=== PATIENT | female | born 1950 | race Caucasian/White ===

== ENCOUNTER 2020-11-14 06:19 | Day surgery (SDC) | payer MEDICARE ==
[2020-11-14] MEDS ORDERED: Ringers Lactate 1,000 ML IV ONE (07:00)
[2020-11-14] MEDS ORDERED: EPINEPHRINE/PF 1 MG/ML AMP ONE (07:16)
[2020-11-14] MEDS ORDERED: propofoL 200 MG/20 ML VIAL IV ONE ×2 (07:50→08:35)
[2020-11-14] MEDS ORDERED: LIDOCAINE 1% MPF 5 ML VIAL ONE (07:50)
[2020-11-14] MEDS ORDERED: FENTANYL CITR 100 MCG/2 ML ONE (08:35)
--- NOTE | 2020-11-14 08:55 | ENDO RPT ---
[address], [address] COLONOSCOPY PROCEDURE REPORT EXAM DATE: 11/14/2020 PATIENT NAME: Jocelyne Solorzano MR #: [id number] BIRTHDATE: 1950 ATTENDING: Roland Murphy DR STATUS: outpatient BOWLING OR SKATING FRONT DESK CLERK: Kera Moss RN and Jessica JHA INDICATIONS: The patient is a 70 yr old Female here for a colonoscopy due to hemoccult positive stools and Positive Cologuard Stool Test PROCEDURE PERFORMED: Colonoscopy with biopsy - cold polypectomy MEDICATIONS: Per Anesthesia. ESTIMATED BLOOD LOSS: None CONSENT: The patient understands the risks and benefits of the procedure and understands that these risks include, but are not limited to: sedation, allergic reaction, infection, perforation and/or bleeding. Alternative means of evaluation and treatment include, among others: physical exam, x-rays, and/or surgical intervention. The patient elects to proceed with this endoscopic procedure. DESCRIPTION OF PROCEDURE: During intra-op preparation period all mechanical medical equipment was checked for proper function. Hand hygiene and appropriate measures for infection prevention was taken. Procedure, possible complications, alternatives including, but not limited to possibility of bleeding, perforation, tear, infection, sepsis, need for surgery, need for blood transfusion, were explained to the patient. After the risks, benefits and alternatives of the procedure were thoroughly explained, Informed consent was verified, confirmed and timeout was successfully executed by the treatment team. The patient was placed in the left lateral position. A digital rectal exam was performed and revealed internal hemorrhoids and A digital rectal exam was performed and revealed external hemorrhoids. After appropriate level of anesthesia, the scope was passed. The EC-[id number] ([id number]) endoscope was introduced through the anus and advanced to the cecum, which was identified by the appendix. The quality of the prep was fair. The instrument was then slowly withdrawn as the colon was fully examined. Scope withdrawal time was 25 minutes. COLON FINDINGS: Five large medium sized small fungating flat polyps with mucous caps were found in the sigmoid colon, rectum, ascending colon, and at the splenic flexure. A polypectomy was performed using snare cautery, with a cold snare and with cold forceps. The resection was complete, the polyp tissue was completely retrieved and sent to histology. There was moderate diverticulosis noted in the sigmoid colon with associated muscular hypertrophy and colonic spasm. No bleeding was noted from the diverticulosis. Moderate sized internal and external hemorrhoids were found. Retroflexed views revealed no abnormalities. The scope was then completely withdrawn from the patient and the procedure terminated. ADVERSE EVENTS: There were no complications. IMPRESSIONS: 1. Five large medium sized small flat polyps were found in the sigmoid colon, rectum, ascending colon, and at the splenic flexure; polypectomy was performed in a piecemeal fashion using snare cautery, with a cold snare and with cold forceps, the largest polyps were noted in Rectum @ 16cm from verge, which was pedunculated on thin stalk, taken @ stalk with hot snare, the next largest was in sigmoid colon @ 33cm from verge, flat, sessile, adenomatous appearing, this required saline lift, and was taken with hot snare. 2. There was moderate diverticulosis noted in the sigmoid colon 3. Moderate sized internal and external hemorrhoids RECOMMENDATIONS: 1. avoid NSAIDS for 2 weeks 2. await biopsy results 3. follow-up: office 2 week(s) 4. Monitor for any evidence of rectal bleeding. 5. continue surveillance 6. yearly hemoquant 7. hemorrhoidal hygiene 8. increase dietary water RECALL: Return in 1 year(s) for Colonoscopy, pending biopsy results. Pending Biopsy Results Roland Murphy DR eSigned: Roland Murphy DR 11/14/2020 8:55 AM cc: CPT CODES: ICD9 CODES: PATIENT NAME: Jocelyne Solorzano MR#: [id number]
[2020-11-14 09:07] VITALS: TEMP 97.8
[2020-11-14 09:30] VITALS: BP 153/77; O2SAT 98
--- NOTE | 2020-11-15 07:21 | EKG ---
Test Date: 2020-11-14 Test Time: 06:11:45 Chart Reader: SHANIA MEASUREMENT RESULTS: Intervals: Rate: 63 ND: 150 QRSD: 74 QT: 416 QTc: 425 [place]: P: 78 ND: 150 QRS: 85 T: 78 INTERPRETIVE STATEMENTS: Normal sinus rhythm Normal ECG No previous ECG available for comparison Electronically Signed On 11-15-20 07:18:24 CDT by Alonso Rosenberg
== END 2020-11-14 09:30 | disposition home or self-care (01) ==
LOC: OR 06:19
PROVIDERS: ATTEND Surgery
PROC: 0DBP8ZX Excision of Rectum, Via Natural or Artificial Opening Endoscopic, Diagnostic (ICD-10-PCS; 2020-11-14)
PROC: 0DBN8ZX Excision of Sigmoid Colon, Via Natural or Artificial Opening Endoscopic, Diagnostic (ICD-10-PCS; 2020-11-14)
PROC: 0DBK8ZX Excision of Ascending Colon, Via Natural or Artificial Opening Endoscopic, Diagnostic (ICD-10-PCS; principal; 2020-11-14 07:30)
DX: D12.5 Benign neoplasm of sigmoid colon (principal); K57.30 Diverticulosis of large intestine without perforation or abscess without bleeding; K64.4 Residual hemorrhoidal skin tags; K64.8 Other hemorrhoids; Z20.822 Contact with and (suspected) exposure to COVID-19
CPT/HCPCS: 93005; 88305; 45380; 45385; U0003; J2704 ×2; J0171; J3010; J7120

== ENCOUNTER 2022-11-07 10:17 | Day surgery (SDC) | payer MEDICARE, OTHER ==
[2022-11-07] MEDS ORDERED: GLYCOPYRROLATE 0.2 MG/ML SYR ONE (10:25)
[2022-11-07] MEDS ORDERED: Ringers Lactate 1,000 ML IV ONE (10:26)
[2022-11-07] MEDS ORDERED: Phenylephrine HCl 10 MG/ML 1 ML VIAL ONE (10:26)
[2022-11-07] MEDS: LIDOCAINE 4% TOP SOLUTION ONE ×2 (11:05→11:18)
[2022-11-07] MEDS ORDERED: LIDOCAINE VISCOUS 2% SOLN 15 ML UDC ONE (11:06)
[2022-11-07] MEDS ORDERED: LIDOCAINE 1% MPF 30 ML VIAL ONE (11:06)
[2022-11-07] MEDS ORDERED: propofoL 200 MG/20 ML VIAL IV ONE (11:43)
[2022-11-07] MEDS ORDERED: LIDOCAINE 1% MPF 5 ML VIAL ONE (11:43)
[2022-11-07] MEDS ORDERED: MIDAZOLAM HCL 2 MG/2 ML INJ ONE (11:43)
--- NOTE | 2022-11-07 12:28 | P.OP ---
Date of Service: 11/07/22 (Bronch with RUL BAL and BX) Findings and Operative Technique Age 72 AW RUL mass. Active smoker. Bron performed. Informed consent obtained Findings RUL necrotic material. Multiple BX performed. Procedure terminated x2 due to sig desat and bleeding. Stable. Bronchoscopy showed right upper lobe necrotic changes she had to be bagged twice due to desaturation Multiple biopsies were obtained from the right upper lobe patient was discharged in stable condition
[2022-11-07] MEDS ORDERED: ALBUTEROL 2.5 MG/3 ML NEB SOL ONE (12:48)
[2022-11-07 13:01] VITALS: O2SAT 100
[2022-11-07 13:04] VITALS: BP 139/58; TEMP 99.1
--- NOTE | 2022-11-07 13:19 | RAD REPORT ---
EXAM DESCRIPTION: RAD - Fluoroscopy <1 Hour - 11/07/2022 12:58 pm CLINICAL HISTORY: BRONCH RT LUNG COMPARISON: <Comparisons> FINDINGS: Fluoroscopy time: 2.9 minutes
--- NOTE | 2022-11-07 13:56 | RAD REPORT ---
[facility] CLINICAL HISTORY: S/P BRONCHOSCOPY R/O PNEUMO COMPARISON: CHEST PA AND LAT 2 VIEW dated 04/29/2007; Fluoroscopy <1 Hour dated 11/07/2022 TECHNIQUE: Portable AP view of the chest. FINDINGS: Wedge-shaped central opacity or masslike consolidation and the right suprahilar region. No pneumothorax or effusion. The cardiomediastinal contours are unremarkable. IMPRESSION: No pneumothorax. Right suprahilar central opacity or masslike consolidation.
== END 2022-11-07 14:10 | disposition home or self-care (01) ==
LOC: OR 10:17
PROVIDERS: ATTEND Internal Medicine Sleep Medicine
PROC: 0BDC8ZX Extraction of Right Upper Lung Lobe, Via Natural or Artificial Opening Endoscopic, Diagnostic (ICD-10-PCS; 2022-11-07)
PROC: 0B9C8ZX Drainage of Right Upper Lung Lobe, Via Natural or Artificial Opening Endoscopic, Diagnostic (ICD-10-PCS; principal; 2022-11-07 12:00)
DX: C34.91 Malignant neoplasm of unspecified part of right bronchus or lung (principal); J44.9 Chronic obstructive pulmonary disease, unspecified
CPT/HCPCS: 31624; 31625; 88108; 88305 ×2; 87015; 87206; 87116; 87102; 71045; J2704; J2001 ×2; J2370; J7613; J2250; J7120; 76000

== ENCOUNTER 2022-11-19 07:30 | Day surgery (SDC) | payer OTHER ==
[2022-11-19] MEDS ORDERED: NA CHLORIDE 0.9% 1,000 ML ONE (08:05)
[2022-11-19 08:11] VITALS: BMI 16.5
[2022-11-19 08:20] LABS: MPV 8.2 fL (7.6-11.3)
[2022-11-19 08:22] LABS: Protime INR 1.07
[2022-11-19] MEDS ORDERED: MIDAZOLAM HCL 2 MG/2 ML INJ ONE (08:49)
[2022-11-19] MEDS ORDERED: FLUMAZENIL 0.1 MG/ML (5 mL VIAL) IV ONE (08:50)
[2022-11-19] MEDS ORDERED: NALOXONE 0.4 MG/ML VIAL ONE (08:50)
[2022-11-19] MEDS ORDERED: FENTANYL CITR 100 MCG/2 ML ONE (08:50)
--- NOTE | 2022-11-19 11:03 | RAD REPORT ---
EXAM DESCRIPTION: CT - Lung Biopsy Perc w/CT - 11/19/2022 9:47 am CLINICAL HISTORY: RT LUNG MASS COMPARISON: No comparisons FINDINGS: Preoperative diagnosis: Right lung mass Post operative diagnosis: Same Conscious Sedation: 45 minutes IV conscious sedation utilizing midazolam and fentanyl.. Patient was continuously monitored by nursing staff. Contrast used: NONE Estimated blood loss: less than 5 mL Specimens: 2 x 18 gauge core specimens The patient was placed prone on the table and the right posterior back area was prepped and draped in the usual sterile fashion. 1% lidocaine was infiltrated into the subcutaneous tissues for local anes thesia. Under computed tomographic guidance, a 17 gauge introducer was advanced into the lesion. Subs equently, a 18 gauge, 10 cm long, 20 mm throw core biopsy gun was advanced into the lesion and 2 core s were obtained. Postprocedure imaging demonstrated no complications. Samples were given to pathology for analysis. Th e patient tolerated the procedure without immediate complication and transferred to the recovery room in stable condition. IMPRESSION: Technically successful CT-guided biopsy right lung mass. All CT scans are performed using dose optimization technique as appropriate and may include automated exposure control or mA/KV adjustment according to patient size.
[2022-11-19 12:56] VITALS: BP 104/57; TEMP 98.1; O2SAT 98
--- NOTE | 2022-11-19 13:47 | RAD REPORT ---
EXAM DESCRIPTION: RAD - Chest Single View - 11/19/2022 1:38 pm CLINICAL HISTORY: S/P LUNG BIOPSY Chest pain. COMPARISON: Chest Single View dated 11/07/2022 FINDINGS: Portable technique limits examination quality. Opacity in the right upper lobe appears slightly more prominent than on the prior study. There is no postprocedure pneumothorax. Emphysematous lung gomes.Heart is normal in size. IMPRESSION: No postprocedure pneumothorax.
== END 2022-11-19 13:53 | disposition home or self-care (01) ==
LOC: FNA 07:30 → DS 13:53
PROVIDERS: ATTEND Internal Medicine Sleep Medicine
PROC: 0BBK3ZX Excision of Right Lung, Percutaneous Approach, Diagnostic (ICD-10-PCS; principal; 2022-11-19)
DX: C34.91 Malignant neoplasm of unspecified part of right bronchus or lung (principal)
CPT/HCPCS: 36415; 85049; 85610; 88305; 85730; 77012; 71045; 32408; J2250; J3010; J7030; J2310

== ENCOUNTER 2023-02-09 06:58 | Emergency (ER) | payer MEDICARE ==
[2023-02-09 07:37] LABS: Absolute Lymphocytes (CBC) 0.2 K/uL (0.7-4.9); Hematocrit 29.2 % (36.0-45.0); Lymphocytes % 4.3 % (15.3-44.8); MCV 88.4 fL (80-100); MPV 8.2 fL (7.6-11.3)
[2023-02-09 07:41] LABS: Protime INR 0.93
[2023-02-09 07:54] LABS: ALT/SGPT 20 U/L (13-56); AST/SGOT 15 U/L (15-37); Albumin 2.7 g/dL (3.4-5.0); Alkaline Phosphatase 84 U/L (45-117); BUN Blood Urea Nitrogen 29 mg/dL (7-18); Bicarbonate 24 mEq/L (21-32); Bilirubin Total 0.2 mg/dL (0.2-1.0); Glomerular Filtration Rate 40 ml/min (=/>90); Glucose Level 196 mg/dL (74-106); Magnesium 2.3 mg/dL (1.6-2.4); NT PRO-BNP 824 pg/mL (<125); Potassium 4.6 mEq/L (3.5-5.1); Protein, Total 7.3 g/dL (6.4-8.2); Sodium Level 136 mEq/L (136-145)
[2023-02-09 07:55] LABS: Bilirubin Direct < 0.1 mg/dL (0-0.2); Bilirubin Indirect, Calculated ND mg/dL (0.2-0.8)
--- NOTE | 2023-02-09 08:09 | RAD REPORT ---
[facility] 7[facility]38 am CLINICAL HISTORY: The COMPARISON: December 2022 FINDINGS: Right upper lobe mass has decreased in size. Left lung appears clear of acute infiltrate. The heart is normal size
--- NOTE | 2023-02-09 08:26 | RAD REPORT ---
EXAM DESCRIPTION: CT - Chest For Pe Angio - 02/09/2023 8:11 am CLINICAL HISTORY: Chest pain COMPARISON: December 2022 TECHNIQUE: Dynamically enhanced axial 3 mm thick images of the chest were obtained during administra tion of 100 mL Isovue 370 IV contrast. Coronal and oblique reconstruction images were generated and r eviewed. Exam utilizes a protocol for optimal evaluation of pulmonary arterial tree. Maximum intensity projections 3D imaging was utilized All CT scans are performed using dose optimization technique as appropriate and may include automated exposure control or mA/KV adjustment according to patient size. FINDINGS: A pulmonary embolus is not seen. A thoracic aortic aneurysm is not noted. A pleural effusion is not seen. A pericardial effusion is not seen. The soft tissue component to the known right upper lobe mass has diminished status post treatment. It contains a prominent central cavity. 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 Thoracoabdominal aortic aneurysm 3.[address] in [address] ability
--- OUTSIDE RECORDS SUMMARY | 2023-02-09 09:10 | XMS REPORT | Continuity of Care Document ---
:1950 Author Organization [facility] t Address [address] [place] [address] [address] [place] [address] Care Team Providers Name Role Phone NormaSandra Attending Clinician Unavailable Payers Payer Name Policy Type Policy Number Effective Date Expiration Date Krista stevenson [facility] 53 [id number] 2021 Common ADVANTAGE 00:00:00 [facility] NOVITAS MB [id number] [facility] MEDICARE NOVITAS MB [id number] [facility] MEDICARE NOVITAS MB [id number] Common [facility] MEDICARE NOVITAS MB [id number] [facility] [place] [id number] [facility] - [facility] Problems Condition Condition Condition Status Onset Resolution Last Treating Co mments Source Name Details Category Date Date Treatment Clinician Date Osteoporos Osteoporos Problem C ommon is is of Spirit lumbar - [facility] spine [facility] Hypothyroi Hypothyroi Problem C ommon dism dism [facility] [id number] Screening Problem Com mon for breast [facility] cancer [facility] Hypertensi Hypertensi Problem C ommon on on [facility] Hyperlipid Hyperlipid Problem C ommon emia emia [facility] Gastroesop Chronic Problem Comm on hageal GERD Spirit reflux - CHI disease [facility] [id number] Cigarette Problem Comm on nicotine Spirit dependence - [facility] without complicati [facility] [id number] Moderate Problem Comm on protein-ca Spirit [place] - [facility] malnutriti [facility] [id number] Peripheral Problem Co mmon vascular Spirit disease, - [facility] unspecifie [facility] [id number] History of Problem Co mmon uterine Spirit cancer - [facility] [id number] Stage 3a Problem Comm on chronic Spirit kidney - [facility] disease [facility] [id number] Mild Problem Common protein-ca Spirit [place] - [facility] malnutriti [facility] Allergies, Adverse Reactions, Alerts Allergy Allergy Status Severity Reaction(s) Onset Inactive Treating Comm ents Source Name Type Date Date Clinician Penicill Penicill Active swelling to C ommon in in tongue [facility] lisinopr lisinopr Active cough Common il il [facility] valsarta valsarta Active cough Common n n [facility] irbesart irbesart Active cough Common an an [facility] 235 Drug Active itching Common allergy [facility] Social History Social Habit Start Date Stop Date Quantity Comments Source History of Tobacco Current Smoker Co mmon [facility] - [facility] Use [facility] Sex Assigned At Com mon [facility] Smoking Status Start Date Stop Date Source Current Smoker 2022-07-29 00:00:00 Common Spiri t [facility] Medications Ordered Filled Start Stop Current Ordering Indication Dosage Frequency Signature Comments Components Source Medication Medication Date Date Medication? Clinician (SIG) Name Name Aspirin Aspirin No 1{table QD Aspirin Adult Low Adult Low 3-27 t} Adult Low Strength 81 Strength 81 00:00: Strength MG MG 00 81 MG Aspirin Aspirin No 1{table QD Aspirin Adult Low Adult Low 3-27 t} Adult Low Strength 81 Strength 81 00:00: Strength MG MG 00 81 MG Aspirin Aspirin No 1{table QD Aspirin Adult Low Adult Low 3-27 t} Adult Low Strength 81 Strength 81 00:00: Strength MG MG 00 81 MG Aspirin Aspirin No 1{table QD Aspirin Adult Low Adult Low 3-27 t} Adult Low Strength 81 Strength 81 00:00: Strength MG MG 00 81 MG Aspirin Aspirin No 1{table QD Aspirin Adult Low Adult Low 3-27 t} Adult Low Strength 81 Strength 81 00:00: Strength MG MG 00 81 MG Aspirin Aspirin No 1{table QD Aspirin Adult Low Adult Low 3-27 t} Adult Low Strength 81 Strength 81 00:00: Strength MG MG 00 81 MG Aspirin Aspirin No 1{table QD Aspirin Adult Low Adult Low 3-27 t} Adult Low Strength 81 Strength 81 00:00: Strength MG MG 00 81 MG Aspirin Aspirin No 1{table QD Aspirin Adult Low Adult Low 3-27 t} Adult Low Strength 81 Strength 81 00:00: Strength MG MG 00 81 MG Aspirin Aspirin Yes Sandra 1 tablet Co mmon Adult Low Adult Low 3-27 [place] Spir it Strength Strength 00:00: - [facility]I 00 [facility] Aspirin Aspirin No 1{table QD Aspirin Adult Low Adult Low 3-27 t} Adult Low Strength 81 Strength 81 00:00: Strength MG MG 00 81 MG Aspirin Aspirin No 1{table QD Aspirin Adult Low Adult Low 3-27 t} Adult Low Strength 81 Strength 81 00:00: Strength MG MG 00 81 MG Pravastatin Pravastatin Yes Sandra TAKE ONE Common Sodium Sodium [place] TABLET BY Spiri t MOUTH ONCE - CHI DAILY AT [facility] Diltiazem Diltiazem Yes Sandra TAKE TWO Common HCl HCl [place] TABLETS BY Spirit MOUTH ONCE - CHI DAILY 90 [facility] Levothyroxi Levothyroxi Yes Sandra take one Common ne Sodium ne Sodium [place] tablet by Spirit mouth once - [facility]I daily Once St a day [address] Omeprazole Omeprazole Yes Sandra TAKE 1 Common [place] CAPSULE BY Spirit MOUTH ONCE - CHI DAILY [facility] Losartan Losartan Yes Sandra 1 tablet Co mmon Potassium Potassium [place] Spir it - CHI [facility] Coricidin Coricidin No 1{capsu 6xD Coricidin HBP HBP le_as_n HBP Congestion/ Congestion/ eeded} Congestion Cough Cough /Cough 10-200 MG 10-200 MG 10-200 MG dilTIAZem dilTIAZem No dilTIAZem HCl 120 MG HCl 120 MG HCl 120 MG Omeprazole Omeprazole No Omeprazole 20 MG 20 MG 20 MG Benadryl Benadryl No 1{table QD Benadryl Allergy 25 Allergy 25 t_at_be Allergy 25 MG MG dtime_a MG s_neede d} Pravastatin Pravastatin No Pravastati Sodium 40MG Sodium 40MG n Sodium 40MG Sodium Sodium No Sodium Bicarbonate Bicarbonate Bicarbonat 325 MG 325 MG e 325 MG Omeprazole Omeprazole No Omeprazole 20 MG 20 MG 20 MG Pravastatin Pravastatin No Pravastati Sodium 40 Sodium 40 n Sodium MG MG 40 MG Euthyrox 75 Euthyrox 75 No QD Euthyrox MCG MCG 75 MCG Benadryl Benadryl No 1{table QD Benadryl Allergy 25 Allergy 25 t_at_be Allergy 25 MG MG dtime_a MG s_neede d} dilTIAZem dilTIAZem No dilTIAZem HCl 120 MG HCl 120 MG HCl 120 MG Coricidin Coricidin No 1{capsu 6xD Coricidin HBP HBP le_as_n HBP Congestion/ Congestion/ eeded} Congestion Cough Cough /Cough 10-200 MG 10-200 MG 10-200 MG Sodium Sodium No Sodium Bicarbonate Bicarbonate Bicarbonat 325 MG 325 MG e 325 MG Sodium Sodium No Sodium Bicarbonate Bicarbonate Bicarbonat 325 MG 325 MG e 325 MG Coricidin Coricidin No 1{capsu 6xD Coricidin HBP HBP le_as_n HBP Congestion/ Congestion/ eeded} Congestion Cough Cough /Cough 10-200 MG 10-200 MG 10-200 MG Pravastatin Pravastatin No Pravastati Sodium 40 Sodium 40 n Sodium MG MG 40 MG Omeprazole Omeprazole No Omeprazole 20 MG 20 MG 20 MG dilTIAZem dilTIAZem No dilTIAZem HCl 120 MG HCl 120 MG HCl 120 MG Benadryl Benadryl No 1{table QD Benadryl Allergy 25 Allergy 25 t_at_be Allergy 25 MG MG dtime_a MG s_neede d} Euthyrox 75 Euthyrox 75 No Euthyrox MCG MCG 75 MCG Euthyrox 75 Euthyrox 75 No QD Euthyrox MCG MCG 75 MCG Omeprazole Omeprazole No Omeprazole 20 MG 20 MG 20 MG Sodium Sodium No Sodium Bicarbonate Bicarbonate Bicarbonat 325 MG 325 MG e 325 MG dilTIAZem dilTIAZem No dilTIAZem HCl 120 MG HCl 120 MG HCl 120 MG Euthyrox 75 Euthyrox 75 No Euthyrox MCG MCG 75 MCG Benadryl Benadryl No 1{table QD Benadryl Allergy 25 Allergy 25 t_at_be Allergy 25 MG MG dtime_a MG s_neede d} Coricidin Coricidin No 1{capsu 6xD Coricidin HBP HBP le_as_n HBP Congestion/ Congestion/ eeded} Congestion Cough Cough /Cough 10-200 MG 10-200 MG 10-200 MG Pravastatin Pravastatin No Pravastati Sodium 40 Sodium 40 n Sodium MG MG 40 MG Euthyrox 75 Euthyrox 75 No QD Euthyrox MCG MCG 75 MCG Omeprazole Omeprazole No Omeprazole 20 MG 20 MG 20 MG Sodium Sodium No Sodium Bicarbonate Bicarbonate Bicarbonat 325 MG 325 MG e 325 MG dilTIAZem dilTIAZem No dilTIAZem HCl 120 MG HCl 120 MG HCl 120 MG Euthyrox 75 Euthyrox 75 No Euthyrox MCG MCG 75 MCG Benadryl Benadryl No 1{table QD Benadryl Allergy 25 Allergy 25 t_at_be Allergy 25 MG MG dtime_a MG s_neede d} Coricidin Coricidin No 1{capsu 6xD Coricidin HBP HBP le_as_n HBP Congestion/ Congestion/ eeded} Congestion Cough Cough /Cough 10-200 MG 10-200 MG 10-200 MG Pravastatin Pravastatin No Pravastati Sodium 40 Sodium 40 n Sodium MG MG 40 MG Euthyrox 75 Euthyrox 75 No QD Euthyrox MCG MCG 75 MCG Pravastatin Pravastatin No Pravastati Sodium 40 Sodium 40 n Sodium MG MG 40 MG dilTIAZem dilTIAZem No dilTIAZem HCl 120 MG HCl 120 MG HCl 120 MG Levothyroxi Levothyroxi No Levothyrox ne Sodium ne Sodium ine Sodium 75 MCG 75 MCG 75 MCG Omeprazole Omeprazole No Omeprazole 20 MG 20 MG 20 MG Benadryl Benadryl No 1{table QD Benadryl Allergy 25 Allergy 25 t_at_be Allergy 25 MG MG dtime_a MG s_neede d} Coricidin Coricidin No 1{capsu 6xD Coricidin HBP HBP le_as_n HBP Congestion/ Congestion/ eeded} Congestion Cough Cough /Cough 10-200 MG 10-200 MG 10-200 MG Sodium Sodium No Sodium Bicarbonate Bicarbonate Bicarbonat 325 MG 325 MG e 325 MG Pravastatin Pravastatin No Pravastati Sodium 40MG Sodium 40MG n Sodium 40MG Sodium Sodium No Sodium Bicarbonate Bicarbonate Bicarbonat 325 MG 325 MG e 325 MG Diltiazem Diltiazem No Diltiazem HCl 120 MG HCl 120 MG HCl 120 MG Levothyroxi Levothyroxi No QD Levothyrox ne Sodium ne Sodium ine Sodium 75 MCG 75 MCG 75 MCG Omeprazole Omeprazole No Omeprazole 20 MG 20 MG 20 MG Pravastatin Pravastatin No Pravastati Sodium 40MG Sodium 40MG n Sodium 40MG Sodium Sodium No Sodium Bicarbonate Bicarbonate Bicarbonat 325 MG 325 MG e 325 MG Omeprazole Omeprazole No Omeprazole 20 MG 20 MG 20 MG Diltiazem Diltiazem No Diltiazem HCl 120 MG HCl 120 MG HCl 120 MG Sodium Sodium No Sodium Bicarbonate Bicarbonate Bicarbonat 325 MG 325 MG e 325 MG Omeprazole Omeprazole No Omeprazole 20 MG 20 MG 20 MG Pravastatin Pravastatin No Pravastati Sodium 40MG Sodium 40MG n Sodium 40MG dilTIAZem dilTIAZem No dilTIAZem HCl 120 MG HCl 120 MG HCl 120 MG Sodium Sodium No Sodium Bicarbonate Bicarbonate Bicarbonat 325 MG 325 MG e 325 MG dilTIAZem dilTIAZem No dilTIAZem HCl 120 MG HCl 120 MG HCl 120 MG Omeprazole Omeprazole No Omeprazole 20 MG 20 MG 20 MG Pravastatin Pravastatin No Pravastati Sodium 40MG Sodium 40MG n Sodium 40MG Immunizations Ordered Immunization Filled Immunization Date Status Commen ts Source Name Name FLUZONE HIGH DOSE FLUZONE HIGH DOSE 2021-05-29 Completed [facility] OVER 65 OVER 65 14:23:00 - [facility] FLUZONE HIGH DOSE FLUZONE HIGH DOSE 2021-05-29 Completed [facility] OVER 65 OVER 65 14:23:00 - [facility] FLUZONE HIGH DOSE FLUZONE HIGH DOSE 2021-05-29 Completed [facility] OVER 65 OVER 65 14:23:00 - [facility] FLUZONE HIGH DOSE FLUZONE HIGH DOSE 2021-05-29 Completed [facility] OVER 65 OVER 65 14:23:00 - [facility] FLUZONE HIGH DOSE FLUZONE HIGH DOSE 2021-05-29 Completed [facility] OVER 65 OVER 65 14:23:00 - [facility] FLUZONE HIGH DOSE FLUZONE HIGH DOSE 2021-05-29 Completed [facility] OVER 65 OVER 65 14:23:00 - [facility] FLUZONE HIGH DOSE FLUZONE HIGH DOSE 2020-04-10 Completed [facility] OVER 65 OVER 65 19:57:00 - [facility] FLUZONE HIGH DOSE FLUZONE HIGH DOSE 2020-04-10 Completed [facility] OVER 65 OVER 65 19:57:00 - [facility] FLUZONE HIGH DOSE FLUZONE HIGH DOSE 2020-04-10 Completed [facility] OVER 65 OVER 65 19:57:00 - [facility] FLUZONE HIGH DOSE FLUZONE HIGH DOSE 2020-04-10 Completed [facility] OVER 65 OVER 65 19:57:00 - [facility] FLUZONE HIGH DOSE FLUZONE HIGH DOSE 2020-04-10 Completed [facility] OVER 65 OVER 65 19:57:00 - [facility] FLUZONE HIGH DOSE FLUZONE HIGH DOSE 2020-04-10 Completed [facility] OVER 65 OVER 65 19:57:00 - [facility] FLUZONE HIGH DOSE FLUZONE HIGH DOSE 2020-04-10 Completed [facility] OVER 65 OVER 65 19:57:00 - [facility] FLUZONE HIGH DOSE FLUZONE HIGH DOSE 2020-04-10 Completed [facility] OVER 65 OVER 65 19:57:00 - [facility] FLUZONE HIGH DOSE FLUZONE HIGH DOSE 2020-04-10 Completed [facility] OVER 65 OVER 65 19:57:00 - [facility] FLUZONE HIGH DOSE FLUZONE HIGH DOSE 2020-04-10 Completed [facility] OVER 65 OVER 65 19:57:00 - [facility] FLUZONE HIGH DOSE FLUZONE HIGH DOSE 2019-05-06 Completed [facility] OVER 65 OVER 65 15:11:00 - [facility] FLUZONE HIGH DOSE FLUZONE HIGH DOSE 2019-05-06 Completed [facility] OVER 65 OVER 65 15:11:00 - [facility] FLUZONE HIGH DOSE FLUZONE HIGH DOSE 2019-05-06 Completed [facility] OVER 65 OVER 65 15:11:00 - [facility] FLUZONE HIGH DOSE FLUZONE HIGH DOSE 2019-05-06 Completed [facility] OVER 65 OVER 65 15:11:00 - [facility] FLUZONE HIGH DOSE FLUZONE HIGH DOSE 2019-05-06 Completed [facility] OVER 65 OVER 65 15:11:00 - [facility] FLUZONE HIGH DOSE FLUZONE HIGH DOSE 2019-05-06 Completed [facility] OVER 65 OVER 65 15:11:00 - [facility] FLUZONE HIGH DOSE FLUZONE HIGH DOSE 2019-05-06 Completed [facility] OVER 65 OVER 65 15:11:00 - [facility] FLUZONE HIGH DOSE FLUZONE HIGH DOSE 2019-05-06 Completed [facility] OVER 65 OVER 65 15:11:00 - [facility] FLUZONE HIGH DOSE FLUZONE HIGH DOSE 2019-05-06 Completed [facility] OVER 65 OVER 65 15:11:00 - [facility] FLUZONE HIGH DOSE FLUZONE HIGH DOSE 2019-05-06 Completed [facility] OVER 65 OVER 65 15:11:00 - [facility] Pneumovax (PPSV23) Pneumovax (PPSV23) 2018-04-26 Completed [facility] 21:19:00 [facility] Pneumovax (PPSV23) Pneumovax (PPSV23) 2018-04-26 Completed [facility] 21:19:00 [facility] Pneumovax (PPSV23) Pneumovax (PPSV23) 2018-04-26 Completed [facility] 21:19:00 [facility] Pneumovax (PPSV23) Pneumovax (PPSV23) 2018-04-26 Completed [facility] 21:19:00 [facility] Pneumovax (PPSV23) Pneumovax (PPSV23) 2018-04-26 Completed [facility] 21:19:00 [facility] Pneumovax (PPSV23) Pneumovax (PPSV23) 2018-04-26 Completed [facility] 21:19:00 [facility] Pneumovax (PPSV23) Pneumovax (PPSV23) 2018-04-26 Completed [facility] 21:19:00 [facility] Pneumovax (PPSV23) Pneumovax (PPSV23) 2018-04-26 Completed [facility] 21:19:00 - [facility] Pneumovax (PPSV23) Pneumovax (PPSV23) 2018-04-26 Completed Common [facility] 21:19:00 [facility] Pneumovax (PPSV23) Pneumovax (PPSV23) 2018-04-26 Completed [facility] 21:19:00 [facility] Vital Signs Vital Name Observation Time Observation Value Comments Source height 2022-07-30 08:40:00 66.5 [in_i] [facility] weight 2022-07-30 08:40:00 102.6 [lb_av] [facility] temperature 2022-07-30 08:40:00 97.9 [degF] [facility] bmi 2022-07-30 08:40:00 16.31 kg/m2 [facility] oximetry 2022-07-30 08:40:00 96 % [facility] respiratory rate 2022-07-30 08:40:00 15 /min Comm on [facility] blood pressure 2022-07-30 08:40:00 147 mm[Hg] [facility] systolic [facility] blood pressure 2022-07-30 08:40:00 88 mm[Hg] [facility] diastolic [facility] height 2022-07-30 08:00:00 66.5 [in_i] [facility] weight 2022-07-30 08:00:00 102.6 [lb_av] [facility] temperature 2022-07-30 08:00:00 97.9 [degF] [facility] bmi 2022-07-30 08:00:00 16.31 kg/m2 [facility] oximetry 2022-07-30 08:00:00 96 % [facility] respiratory rate 2022-07-30 08:00:00 15 /min Comm on [facility] blood pressure 2022-07-30 08:00:00 147 mm[Hg] [facility] - systolic [facility] blood pressure 2022-07-30 08:00:00 88 mm[Hg] Common [facility] - diastolic [facility] height 2021-12-18 08:00:00 66.5 [in_i] Common [facility] weight 2021-12-18 08:00:00 104 [lb_av] [facility] temperature 2021-12-18 08:00:00 97.5 [degF] Common [facility] bmi 2021-12-18 08:00:00 16.53 kg/m2 [facility] oximetry 2021-12-18 08:00:00 96 % [facility] respiratory rate 2021-12-18 08:00:00 16 /min Comm on [facility] blood pressure 2021-12-18 08:00:00 120 mm[Hg] Common [facility] - systolic [facility] blood pressure 2021-12-18 08:00:00 64 mm[Hg] Common [facility] - diastolic [facility] height 2021-06-26 08:40:00 66.5 [in_i] Common [facility] weight 2021-06-26 08:40:00 105.4 [lb_av] Common [facility] temperature 2021-06-26 08:40:00 97.6 [degF] Common [facility] bmi 2021-06-26 08:40:00 16.76 kg/m2 Common [facility] oximetry 2021-06-26 08:40:00 97 % Common [facility] respiratory rate 2021-06-26 08:40:00 16 /min Comm on [facility] blood pressure 2021-06-26 08:40:00 114 mm[Hg] Common [facility] - systolic [facility] blood pressure 2021-06-26 08:40:00 60 mm[Hg] [facility] - diastolic [facility] height 2021-03-27 08:00:00 66.5 [in_i] Common [facility] weight 2021-03-27 08:00:00 107 [lb_av] Common [facility] temperature 2021-03-27 08:00:00 97.6 [degF] Common [facility] bmi 2021-03-27 08:00:00 17.01 kg/m2 Common [facility] oximetry 2021-03-27 08:00:00 98 % Common [facility] blood pressure 2021-03-27 08:00:00 138 mm[Hg] Common [facility] - systolic [facility] blood pressure 2021-03-27 08:00:00 81 mm[Hg] Common [facility] - diastolic [facility] height 2020-12-24 08:00:00 66.5 [in_i] Common [facility] weight 2020-12-24 08:00:00 109.6 [lb_av] Common [facility] temperature 2020-12-24 08:00:00 97.6 [degF] [facility] bmi 2020-12-24 08:00:00 17.42 kg/m2 [facility] oximetry 2020-12-24 08:00:00 96 % [facility] respiratory rate 2020-12-24 08:00:00 18 /min Comm on [facility] blood pressure 2020-12-24 08:00:00 136 mm[Hg] Common [facility] - systolic [facility] blood pressure 2020-12-24 08:00:00 84 mm[Hg] Common [facility] diastolic [facility] Procedures This patient has no known procedures. Encounters Start End Encounter Admission Attending Care Care Encounter Source Date/Time Date/Time Type Type Clinicians Facility Department ID 2022-07-31 Outpatient THELMA Green [facility] [id number] Common 10:03:00 Sandra [id number] [facility] 2022-07-28 Outpatient [place], STLMLC STLMLC [id number] Common 09:23:00 Sandra [facility] 2021-12-19 Outpatient [place], STLMLC STLMLC [id number] Common 06:58:00 Sandra [facility] 2021-09-18 Outpatient [place], STLMLC STLMLC [id number] Common 14:10:30 Sandra [id number] [facility] 2021-09-18 Outpatient [place], STLMLC STLMLC [id number] Common 14:07:05 Sandra [id number] [facility] 2021-09-18 Outpatient [place], STLMLC STLMLC [id number] Common 12:59:10 Sandra [id number] [facility] 2021-09-18 Outpatient [place], STLMLC STLMLC [id number] Common 11:19:48 Sandra [id number] [facility] 2022-09-29 2022-09-29 (TEL) STLMLC STLMLC [id number] Co mmon 00:00:00 00:00:00 [facility] 2022-07-30 2022-07-30 OFFICE STLMLC STLMLC [id number] Co mmon 00:00:00 00:00:00 VISIT [facility] PT - [facility] 4 [facility] 2022-07-30 2022-07-30 SUB ANNUAL STLMLC STLMLC [id number] Common 00:00:00 00:00:00 MCR [facility] WELLNESS - CHI VISIT [facility] 2022-05-30 2022-05-30 (TEL) STLMLC STLMLC [id number] Co mmon 00:00:00 00:00:00 [facility] 2021-12-18 2021-12-18 OFFICE STLMLC STLMLC [id number] Co mmon 00:00:00 00:00:00 VISIT [facility] PT - CHI LEVEL 4 [facility] 2021-06-26 2021-06-26 OFFICE STLMLC STLMLC [id number] Co mmon 00:00:00 00:00:00 VISIT [facility] ESTAB PT - CHI LEVEL 4 [facility] 2021-03-27 2021-03-27 SUB ANNUAL STLMLC STLMLC [id number] Common 00:00:00 00:00:00 MCR [facility] WELLNESS - CHI VISIT [facility] 2021-02-05 2021-02-05 (TEL) STLMLC STLMLC [id number] Co mmon 00:00:00 00:00:00 [facility] 2021-01-02 2021-01-02 (TEL) STLMLC STLMLC [id number] Co mmon 00:00:00 00:00:00 [facility] 2020-12-24 2020-12-24 OFFICE STLMLC STLMLC [id number] Co mmon 00:00:00 00:00:00 VISIT [facility] PT - CHI LEVEL 4 [facility] 2020-10-24 2020-10-24 Outpatient STLMLC STLMLC [id number] Common 00:00:00 00:00:00 [facility] 2020-06-25 2020-06-25 Outpatient STLMLC STLMLC [id number] Common 00:00:00 00:00:00 [facility] 2020-06-25 2020-06-25 Outpatient STLMLC STLMLC [id number] Common 00:00:00 00:00:00 [facility] 2020-06-13 2020-06-13 Outpatient STLMLC STLMLC [id number] Common 00:00:00 00:00:00 [facility] 2020-05-16 2020-05-16 Outpatient STLMLC STLMLC [id number] Common 00:00:00 00:00:00 [facility] 2019-12-23 2019-12-23 [facility] [id number] Common 08:00:00 08:00:00 [facility] 2019-07-28 2019-07-28 [facility] [id number] Common 14:22:00 14:22:00 [facility] 2019-06-24 2019-06-24 [facility] [id number] Common 08:00:00 08:00:[address] [facility] 2019-05-24 2019-05-24 [facility] [id number] Common 08:56:00 08:56:[address] [facility] 2019-05-24 2019-05-24 [facility] [id number] Common 08:00:00 08:00:[address] [facility] 2018-11-22 2018-11-22 [facility] [id number] Common 09:00:00 09:00:[address] [facility] 2018-06-07 2018-06-07 [facility] [id number] Common 08:49:00 08:49:[address] [facility] 2018-05-24 2018-05-24 [facility] [id number] Common 11:00:00 11:00:[address] [facility] 2018-04-13 2018-04-13 [facility] [id number] Common 17:22:00 17:22:[address] [facility] 2017-11-17 2017-11-17 [facility] [id number] Common 08:30:00 08:30:[address] Spir it [facility] Results This patient has no known results.
[2023-02-09] MEDS ORDERED: HYDROMORPHONE HCL 1 MG/ML INJ ONE (09:47)
[2023-02-09] MEDS ORDERED: ONDANSETRON 4 MG/2 ML VIAL ONE (09:48)
--- NOTE | 2023-02-09 10:35 | EDPHYS ---
Physician Documentation [facility] Name: Jocelyne Solorzano Age: 72 yrs Sex: Female : 1950 Arrival Date: 02/09/2023 Time: 06:58 Bed 16 Private MD: ED Physician Jeanette Cash HPI: 02/09 07:29 This 72 yrs old Female presents to ER via EMS with complaints of Chest pain. sp3 07:29 72-year-old female with a history of lung cancer (patient does not know exact type) sp3 currently on chemotherapy and radiation which started 4 weeks ago as well as COPD (patient still currently smokes) presents to the ED with chief complaint of chest pain acute on chronic chest pain steadily increasing since her radiation started and over the last 48 hours has gotten worse. She also states she has mild shortness of breath which has always been there over the last few months. No sudden increase in that symptom. She denies fever, headache, neck pain, URI symptoms, back pain, abdominal pain, nausea, vomiting, diarrhea, skin rash, focal neurological deficit, syncope, near syncope, or any other signs or symptoms on ROS at this time. She denies any prior history of blood clot, DVT or PE. She denies any prolonged immobilization, long travel, potential bad food, known sick contacts or any other history as well.. Historical: - Allergies: 07:02 No Known Allergies; vc1 - PMHx: 07:02 COPD; Lung cancer; Hyperthyroidism; vc1 - PSHx: 07:02 Total abdominal hysterectomy; vc1 - Immunization history:: Client reports having NOT received the Covid vaccine. - Social history:: Smoking status: Patient reports the use of cigarette tobacco products, smokes one-half pack cigarettes per day. ROS: 07:31 Constitutional: Negative for fever, chills, and weight loss, Eyes: Negative for injury, sp3 pain, redness, and discharge, ENT: Negative for injury, pain, and discharge, Neck: Negative for injury, pain, and swelling, Abdomen/GI: Negative for abdominal pain, nausea, vomiting, diarrhea, and constipation, Back: Negative for injury and pain, MS/Extremity: Negative for injury and deformity, Skin: Negative for injury, rash, and discoloration, Neuro: Negative for headache, weakness, numbness, tingling, and seizure, Psych: Negative for depression, anxiety, suicide ideation, homicidal ideation, and hallucinations, Allergy/Immunology: Negative for hives, rash, and allergies, Endocrine: Negative for neck swelling, polydipsia, polyuria, polyphagia, and marked weight changes, Hematologic/Lymphatic: Negative for swollen nodes, abnormal bleeding, and unusual bruising. 07:31 All other systems are negative. Exam: 07:31 Constitutional: This is a well developed, well nourished patient who is awake, alert, sp3 and in no acute distress. Head/Face: Normocephalic, atraumatic. Eyes: Pupils equal round and reactive to light, extra-ocular motions intact. Lids and lashes normal. Conjunctiva and sclera are non-icteric and not injected. Cornea within normal limits. Periorbital areas with no swelling, redness, or edema. ENT: Nares patent. No nasal discharge, no septal abnormalities noted. External auditory canals are clear. Oropharynx with no redness, swelling, or masses, exudates, or evidence of obstruction, uvula midline. Mucous membranes moist. Neck: Trachea midline, no thyromegaly or masses palpated, and no cervical lymphadenopathy. Supple, full range of motion without nuchal rigidity, or vertebral point tenderness. No Meningismus. Chest/axilla: Normal chest wall appearance and motion. Nontender with no deformity. No lesions are appreciated. Respiratory: Lungs have equal breath sounds bilaterally, clear to auscultation and percussion. No rales, rhonchi or wheezes noted. No increased work of breathing, no retractions or nasal flaring. Abdomen/GI: Soft, non-tender, with normal bowel sounds. No distension or tympany. No guarding or rebound. No evidence of tenderness throughout. Back: No spinal tenderness. No costovertebral tenderness. Full range of motion. Skin: Warm, dry with normal turgor. Normal color with no rashes, no lesions, and no evidence of cellulitis. MS/ Extremity: Pulses equal, no cyanosis. Neurovascular intact. Full, normal range of motion. Neuro: Awake and alert, GCS 15, oriented to person, place, time, and situation. Cranial nerves II-XII grossly intact. Motor strength 5/5 in all extremities. Sensory grossly intact. Cerebellar exam normal. Normal gait. Psych: Awake, alert, with orientation to person, place and time. Behavior, mood, and affect are within normal limits. 07:31 Cardiovascular: Normal cardiac exam with mild tachycardia in the 125 range. Pulse ox 9 9% on room air respiratory rate at 16 with no distress. Lungs demonstrate coarse breath sounds with occasional rhonchi on the left.. 07:58 ECG was reviewed by the Attending Physician. EKG demonstrates normal sinus rhythm at 85 sp3 bpm with normal intervals, normal QRS, normal axis, normal axis ST segments without evidence of any acute ischemia. Vital Signs: 07:01 BP 145 / 93; Pulse 96; Resp 20; Temp 98.1; Pulse Ox 98% ; Weight 46.27 kg; Height 5 ft. vc1 6 in. ; Pain 10/10; 08:00 BP 140 / 79; Pulse 88; Resp 22; Pulse Ox 97% ; bp 09:38 BP 151 / 92; Pulse 80; Resp 21; Pulse Ox 98% ; bp 11:20 BP 150 / 89; Pulse 83; Resp 18; Pulse Ox 97% ; bp 07:01 Body Mass Index 16.46 (46.27 kg, 167.64 cm) vc1 07:01 Pain Scale: Adult vc1 MDM: 07:05 Patient medically screened. sp3 07:32 Data reviewed: vital signs, nurses notes, EMS record, old medical records, lab test sp3 result(s), EKG, radiologic studies. ED course: 72-year-old female with lung cancer on chemo and radiation now with acute on chronic chest pain. Differential diagnosis includes pulmonary embolism, acute coronary syndrome, cancer related pain, vascular pathology, pleurisy, GERD, pulmonary pathology including infection, among others. Will differentiate with laboratory values, CT scan of the chest, EKG and general observation. Patient is in no acute distress or extremis and I believe clinically have ruled out sepsis or shock. Disposition will be based on work-up and patient course.. 09:06 ED course: Initial work-up is negative including troponin. CT scan demonstrates no PE. sp3 Will obtain repeat troponin level 2 hours after the first and if negative will be able to safely discharge her home.. 10:33 ED course: Second troponin is negative. We will safely discharge patient home at this sp3 time. With chest pain chest pain is likely due from radiation and cancer treatment. I find no acute emergency at this time. Follow-up with Dr. Fraser as needed.. 02/09 07:05 Order name: Basic Metabolic Panel; Complete Time: 09:05 sp3 02/09 07:05 Order name: CBC with Diff 3 02/09 07:05 Order name: LFT's; Complete Time: 09:05 sp3 02/09 07:05 Order name: Magnesium; Complete Time: 09:05 sp3 02/09 07:05 Order name: NT PRO-BNP; Complete Time: 09:05 sp3 02/09 07:05 Order name: PT-INR; Complete Time: 09:05 sp3 02/09 07:05 Order name: Troponin HS; Complete Time: 09:05 sp3 02/09 08:05 Order name: Manual Differential EDMS 02/09 09:06 Order name: Troponin High Sensitivity: Please draw 2 hours after the first.; Complete sp3 Time: 10:33 02/09 07:05 Order name: XRAY Chest (1 view); Complete Time: 09:05 3 02/09 07:05 Order name: CT Chest For PE Angio; Complete Time: 09:05 sp3 02/09 07:05 Order name: EKG; Complete Time: 07:06 sp3 02/09 07:05 Order name: Cardiac monitoring; Complete Time: 07:25 sp3 02/09 07:05 Order name: EKG - Nurse/Tech; Complete Time: 08:00 3 02/09 07:05 Order name: IV Saline Lock; Complete Time: 07:25 3 02/09 07:05 Order name: Labs collected and sent; Complete Time: 07:25 3 02/09 07:05 Order name: O2 Per Protocol; Complete Time: 07:25 sp3 02/09 07:05 Order name: O2 Sat Monitoring; Complete Time: 07:25 sp3 Administered Medications: 09:42 Drug: Ondansetron IVP 4 mg Route: IVP; Site: left forearm; nj1 11:22 Follow up: Response: No adverse reaction bp 09:44 Drug: HYDROmorphone IVP 1 mg Route: IVP; Site: left forearm; nj1 11:22 Follow up: Response: No adverse reaction bp Disposition Summary: 02/09/23 10:34 Discharge Ordered Location: Home sp3 Condition: Stable sp3 Diagnosis - Chest pain sp3 Followup: sp3 - With: Miriam Young MD - When: Upon discharge from the Emergency Department - Reason: Continuance of care Discharge Instructions: - Discharge Summary Sheet sp3 - Nonspecific Chest Pain, Adult sp3 Forms: - Medication Reconciliation Form sp3 - Thank You Letter sp3 - Antibiotic Education sp3 - Prescription Opioid Use sp3 Prescriptions: - Diclofenac Sodium 75 mg Oral Tablet Sustained Release - take 1 tablet by ORAL route 2 times per day; 30 tablet; Refills: 0, Product sp3 Selection Permitted Signatures: Dispatcher [employer] Jeanette Bhakta MD MD sp3 Heather Gallegos RN RN vc1 Shantel Castro RN RN nj1 Baldemar Cazares RN bp
--- NOTE | 2023-02-09 10:35 | ER ---
Nurse's Notes [facility] Name: Jocelyne Solorzano Age: 72 yrs Sex: Female : 1950 Arrival Date: 02/09/2023 Time: 06:58 Bed 16 Private MD: Diagnosis: Chest pain Presentation: 02/09 07:01 Chief complaint: EMS states: "We were called for chest pain for 4 weeks after she vc1 started radiation for lung cancer". Coronavirus screen: Vaccine status: Patient reports being unvaccinated. Client denies travel out of the [place] in the last 14 days. At this time, the client does not indicate any symptoms associated with coronavirus-19. Ebola Screen: Patient negative for fever greater than or equal to 101.5 degrees Fahrenheit, and additional compatible Ebola Virus Disease symptoms Patient denies exposure to infectious person. Patient denies travel to an Ebola-affected area in the 21 days before illness onset. Initial Sepsis Screen: Does the patient meet any 2 criteria? HR > 90 bpm. No. Patient's initial sepsis screen is negative. Does the patient have a suspected source of infection? No. Patient's initial sepsis screen is negative. Risk Assessment: Do you want to hurt yourself or someone else? Patient reports no desire to harm self or others. Onset of symptoms is unknown. 07:01 Method Of Arrival: EMS: [facility] vc1 07:01 Acuity: GERARDO 3 vc1 Triage Assessment: 07:04 General: Appears in no apparent distress. uncomfortable, slender, Behavior is vc1 cooperative, Smells of cigarettes. Pain: Complains of pain in anterior aspect of right upper chest, anterior aspect of left upper chest, right breast and left breast Pain does not radiate. Pain currently is 10 out of 10 on a pain scale. Pain began Aggravated by increased activity, deep breaths, coughing. EENT: No deficits noted. No signs and/or symptoms were reported regarding the EENT system. Neuro: Level of Consciousness is awake, alert, obeys commands, Oriented to person, place, time, situation, Appropriate for age. Cardiovascular: No deficits noted. Respiratory: Airway is patent Respiratory effort is even, unlabored, Respiratory pattern is regular, symmetrical. GI: No deficits noted. No signs and/or symptoms were reported involving the gastrointestinal system. : No deficits noted. No signs and/or symptoms were reported regarding the genitourinary system. Derm: No deficits noted. No signs and/or symptoms reported regarding the dermatologic system. Musculoskeletal: No deficits noted. No signs and/or symptoms reported regarding the musculoskeletal system. Historical: - Allergies: 07:02 No Known Allergies; vc1 - PMHx: 07:02 COPD; Lung cancer; Hyperthyroidism; vc1 - PSHx: 07:02 Total abdominal hysterectomy; vc1 - Immunization history:: Client reports having NOT received the Covid vaccine. - Social history:: Smoking status: Patient reports the use of cigarette tobacco products, smokes one-half pack cigarettes per day. Screenin:03 Abuse screen: Denies threats or abuse. Nutritional screening: No deficits noted. vc1 Tuberculosis screening: No symptoms or risk factors identified. 11:21 [facility] ED Fall Risk Assessment (Adult) History of falling in the last 3 months, bp including since admission No falls in past 3 months (0 pts). Assessment: 08:00 Reassessment: PT TO CT. bp 09:39 Reassessment: No changes from previously documented assessment. Patient is alert, bp oriented x 3, equal unlabored respirations, skin warm/dry/pink. 09:42 Pain: Complains of pain in chest Pain currently is 10 out of 10 on a pain scale. nj1 11:20 Reassessment: PT DC HOME WITH FAMILY. bp Vital Signs: 07:01 BP 145 / 93; Pulse 96; Resp 20; Temp 98.1; Pulse Ox 98% ; Weight 46.27 kg; Height 5 ft. vc1 6 in. ; Pain 10/10; 08:00 BP 140 / 79; Pulse 88; Resp 22; Pulse Ox 97% ; bp 09:38 BP 151 / 92; Pulse 80; Resp 21; Pulse Ox 98% ; bp 11:20 BP 150 / 89; Pulse 83; Resp 18; Pulse Ox 97% ; bp 07:01 Body Mass Index 16.46 (46.27 kg, 167.64 cm) vc1 07:01 Pain Scale: Adult vc1 ED Course: 07:01 Patient arrived in ED. vc1 07:01 Jeanette Cash MD is Attending Physician. sp3 07:02 Triage completed. vc1 07:03 Arm band placed on left wrist. vc1 07:04 Patient has correct armband on for positive identification. Bed in low position. Call vc1 light in reach. Client placed on continuous cardiac and pulse oximetry monitoring. NIBP monitoring applied. 07:07 Baldemar Cazares, RN is Primary Nurse. bp 07:25 Inserted saline lock: 22 gauge in left forearm, using aseptic technique. Blood bp collected. 07:40 XRAY Chest (1 view) In Process Unspecified. EDMS 08:12 CT Chest For PE Angio In Process Unspecified. EDMS 10:34 Miriam Young MD is Referral Physician. sp3 11:21 No provider procedures requiring assistance completed. IV discontinued, intact, bp bleeding controlled, No redness/swelling at site. Pressure dressing applied. Administered Medications: 09:42 Drug: Ondansetron IVP 4 mg Route: IVP; Site: left forearm; nj1 11:22 Follow up: Response: No adverse reaction bp 09:44 Drug: HYDROmorphone IVP 1 mg Route: IVP; Site: left forearm; nj1 11:22 Follow up: Response: No adverse reaction bp Medication: 11:22 VIS not applicable for this client. bp Outcome: 10:34 Discharge ordered by . sp3 11:21 Discharged to home via wheelchair, with family. bp 11:21 Condition: stable 11:21 Discharge instructions given to patient, family, Instructed on discharge instructions, follow up and referral plans. medication usage, Demonstrated understanding of instructions, follow-up care, medications, Prescriptions given X 1. 11:22 Patient left the ED. bp Signatures: Dispatcher [employer] EDTN Baldemar Cazares, RN RN bp Jeanette Cash MD MD sp3 Heather Gallegos RN RN vc1 Shantel Castro RN RN nj1
[2023-02-09 11:43] VITALS: TEMP 98.1
[2023-02-09 11:46] VITALS: BP 150/89; O2SAT 97
[2023-02-09 12:48] LABS: Blood Morphology Comment NOT SEEN (NOT SEEN); Platelet Estimate ADEQ; Platelets, Giant 1+
--- NOTE | 2023-02-11 19:17 | EKG ---
Test Date: 2023-02-09 Test Time: 07:54:42 Subacute Nurse: MANDY MEASUREMENT RESULTS: Intervals: Rate: 85 OK: 138 QRSD: 68 QT: 356 QTc: 423 Keiser: P: 78 OK: 138 QRS: 77 T: 78 INTERPRETIVE STATEMENTS: Normal sinus rhythm Normal ECG Compared to ECG 11/14/2020 06:11:45 No significant changes Electronically Signed On 02-11-23 19:12:00 CDT by Juan A Zamarripa
== END 2023-02-09 11:22 | disposition home or self-care (01) ==
LOC: ER 06:58
DX: R07.89 Other chest pain (principal); C34.90 Malignant neoplasm of unspecified part of unspecified bronchus or lung; J44.9 Chronic obstructive pulmonary disease, unspecified; F17.210 Nicotine dependence, cigarettes, uncomplicated
CPT/HCPCS: 93005; 85025; 80048; 36415; 83735; 85610; 80076; 84484 ×2; 83880; 71275; 71045; 96375; 96374; 99284; Q9967; J1170; J2405